=== PATIENT | male | born 1945 | race Caucasian/White ===

== ENCOUNTER 2017-03-19 17:59 | Emergency (ER) | payer MEDICARE, OTHER ==
[~2017-03-19] VITALS: Ht 167.6 cm; Wt 94.5 kg
[2017-03-19] MEDS ORDERED: GLUCOPHAGE PO (18:16)
[2017-03-19] MEDS ORDERED: NYSTATIN1 EAC2 MC (18:16)
[2017-03-19] MEDS ORDERED: CLOBETASOL PROP15 GM TP (18:16)
[2017-03-19] MEDS ORDERED: PRILOSEC 20MG20 MG PO (18:17)
[2017-03-19] MEDS ORDERED: FEXOFENADINE H180 M1 PO (18:17)
[2017-03-19] MEDS ORDERED: FLONASE ALLERG9.9 ML NS (18:17)
[2017-03-19] MEDS ORDERED: AMOXICILLIN 50500 MG (18:17)
[2017-03-19] MEDS ORDERED: ZOCOR20 M1 PO (18:18)
[2017-03-19] MEDS ORDERED: FERROUS SU325 MG/TAB (18:18)
[2017-03-19] MEDS ORDERED: GLIMEPIRIDE4 MG PO (18:19)
[2017-03-19] MEDS ORDERED: ARICEPT10 M1 PO (18:19)
[2017-03-19] MEDS ORDERED: NOVAPLUS DE100 MG/ML IM (18:19)
[2017-03-19] MEDS ORDERED: COREG 3.123.125 MG/T PO (18:20)
[2017-03-19] MEDS ORDERED: ZESTRIL10 M1 PO (18:20)
[2017-03-19] MEDS ORDERED: METFORMIN HYD1000 MG PO (18:20)
[2017-03-19] MEDS ORDERED: FLOMAX0.4 MG PO (18:20)
[2017-03-19] MEDS ORDERED: ASPIRIN E.C. 8181 MG PO (18:21)
[2017-03-19] MEDS ORDERED: SYNTHROID175 MCG PO (18:21)
[2017-03-19] MEDS ORDERED: CYCLOBENZAPRINE10 M1 PO (18:21)
[2017-03-19] MEDS ORDERED: NITROGLYCERIN0.4 M1 SL (18:21)
[2017-03-19 19:04] LABS: HEMATOCRIT 31.9 % (42.0-52.0); HEMOGLOBIN 10.9 g/dL (13.5-18.0); MEAN CELL VOLUME 86 fl (78-100); MEAN CORPUSCULAR HEMOGLOBIN 30 pg (27-31); MEAN CORPUSCULAR HGB CONC 34 g/dL (33-37); PLATELET COUNT 124 K/mm3 (130-400); RED CELL DISTRIBUTION WIDTH 13.7 % (11.5-14.5); WHITE BLOOD COUNT 4.6 K/mm3 (4.8-10.8)
[2017-03-19 19:18] LABS: BAND 1 % (0-10); LYMPHOCYTE 13 % (20-51); MONOCYTE 11 % (3-10); NEUTROPHILS 59 % (42-75)
[2017-03-19 19:39] VITALS: BP 116/66
== END 2017-03-19 19:40 | disposition home or self-care (01) ==
LOC: ED 17:59
PROVIDERS: Family Medicine
DX: S70.01XA Contusion of right hip, initial encounter (principal); S70.11XA Contusion of right thigh, initial encounter; I25.10 Atherosclerotic heart disease of native coronary artery without angina pectoris; E11.9 Type 2 diabetes mellitus without complications; I10 Essential (primary) hypertension; E78.5 Hyperlipidemia, unspecified; C80.1 Malignant (primary) neoplasm, unspecified; C79.82 Secondary malignant neoplasm of genital organs; F03.90 Unspecified dementia, unspecified severity, without behavioral disturbance, psychotic disturbance, mood disturbance, and anxiety; Z96.653 Presence of artificial knee joint, bilateral; Z92.3 Personal history of irradiation; W18.30XA Fall on same level, unspecified, initial encounter; Z79.84 Long term (current) use of oral hypoglycemic drugs; Z79.82 Long term (current) use of aspirin

== ENCOUNTER 2017-07-05 13:30 | Outpatient (RCR) | payer MEDICARE, OTHER ==
[~2017-07-05 13:30] MED LIST: AMOXICILLIN 50500 MG; ARICEPT10 M1 PO; ASPIRIN E.C. 8181 MG PO; CLOBETASOL PROP15 GM TP; COREG 3.123.125 MG/T PO; CYCLOBENZAPRINE10 M1 PO; FERROUS SU325 MG/TAB; FEXOFENADINE H180 M1 PO; FLOMAX0.4 MG PO; FLONASE ALLERG9.9 ML NS; GLIMEPIRIDE4 MG PO; GLUCOPHAGE PO; METFORMIN HYD1000 MG PO; NITROGLYCERIN0.4 M1 SL; NOVAPLUS DE100 MG/ML IM; NYSTATIN1 EAC2 MC; PRILOSEC 20MG20 MG PO; SYNTHROID175 MCG PO; ZESTRIL10 M1 PO; ZOCOR20 M1 PO
== END 2017-07-05 14:00 | disposition still patient (30) ==
LOC: PT 13:30
DX: R26.81 Unsteadiness on feet (principal); Z91.81 History of falling
CPT/HCPCS: G8978-GP; G8979-GP